=== PATIENT | male | born 1950 | race Caucasian/White ===

== ENCOUNTER 2018-01-04 13:24 | Inpatient (IN) | payer OTHER ==
[~2018-01-04] VITALS: Ht 170.2 cm; Wt 99.3 kg
--- NOTE | ~2018-01-04 | EKG ---
[address] [address] ELECTROCARDIOGRAM REPORT Name: ENRIQUE SILVESTRE Room #: 201-P ADM IN M.R.#: [id number] Admission: 01/04/18 Attend Phys: Adriel Daily MD Discharge: Date of : 52 Report #: [id number] THIS REPORT FOR: //name// [facility] Test Date: 2018-01-06 Test Time: 06:28:43 Pat Name: ENRIQUE SILVESTRE Department: Room: 201 P Gender: M Process Consultant: TIFFANIE : 1950 Requested By: Roel Mccarthy Order Number: [id number] MD: Alberto Lee Measurements Intervals [place] Rate: 77 P: 60 HI: 147 QRS: 37 QRSD: 109 T: -23 QT: 405 QTc: 459 Interpretive Statements Sinus rhythm Inferior infarct, age indeterminate Baseline wander in lead(s) V1 and V4 and V5 Compared to ECG 01/05/2018 11:59:24 Myocardial infarct finding still present Electronically Signed On 01-06-2018 8:10:57 ROUTE RELIEF DRIVER by Alberto Lee [email or web address] <ELECTRONICALLY SIGNED> By: Alberto Lee MD 01/06/1810 7 7 Alberto Lee MD /TITA
--- NOTE | ~2018-01-04 | EKG ---
[address] [place] [address] ELECTROCARDIOGRAM REPORT Name: ENRIQUE SILVESTRE Room #: 201-P ADM IN M.R.#: [id number] Admission: 01/04/18 Attend Phys: Azar Esqueda Discharge: Date of : 52 Report #: [id number] THIS REPORT FOR: //name// [facility] Test Date: 2018-01-05 Test Time: 11:59:24 Pat Name: ENRIQUE SILVESTRE Department: Room: 201 P Gender: M Truck Hop: Julien POTTER : 1950 Requested By: Roel Mccarthy Order Number: [id number] MD: Alberto Lee Measurements Intervals [place] Rate: 75 P: 53 MN: 150 QRS: 14 QRSD: 108 T: -11 QT: 387 QTc: 433 Interpretive Statements Sinus rhythm Inferior infarct, old Compared to ECG 01/05/2018 06:23:14 Myocardial infarct finding still present Electronically Signed On 01-05-2018 15:44:53 ROAD CLEANER by Alberto Lee [email or web address] <ELECTRONICALLY SIGNED> By: Alberto Lee MD 01/05/18 1544 1159 [id number] Alberto Lee MD /TITA
--- NOTE | ~2018-01-04 | CATHLAB ---
[facility] [address] [place] [address] INVASIVE PROCEDURE REPORT Name: SILVESTREENRIQUE Room #: 201-P [facility] IN ..#: [id number] Admission: 01/04/18 Attend Phys: Azar Sears Discharge: Date of : 52 Date of Service: 01/05/18 153 Report #: [id number] THIS REPORT FOR: //name// APPROVED REPORT Patient Details Patient Status: In-Patient Room #: The patient is a 67 year-old male Event Personnel Roel Mccarthy Automotive Service Professional, Darrian Adamson RN, Kennedi Cardona RN RN, Marilia Malik RTR, Vivian Tavarez David Monitor Procedures Performed Art Access - R femoral artery* Left Heart Cath w/or w/o Coronaries 1181178 LHC FFR 2588853 FFR PTCA Single Vessel CIRC 7525124 PCISINGLE 10761 Initial Mod Sed Same Phys/QHP Gr5y 601667 18079 Mod Sed Same Phys/QHP Ea 068085 Procedure Narrative The patient was brought urgently to the Cardiac Catheterization Laboratory and was prepped and draped in a sterile manner. The Right Groin^ was infiltrated with 1% Lidocaine subcutaneous anesthesia. A PINNACLE 6FR Sheath #[id number] sheath was inserted into the RFA^. Coronary angiography was performed using coronary diagnostic catheters. The right coronary system was accessed and visualized with a JR 4 catheter. The left coronary system was accessed and visualized with a JL 4 catheter. The left ventricle was accessed and visualized with a Pigtail catheter. Left ventricular/Aortic Valve gradient assessed via catheter pullback. Left ventriculogram was performed in CERNA projection. The patient tolerated the procedure well and there were no complications associated with the procedure. There was no hematoma. Intraoperative Conscious Sedation Sedation start time: 09:08 Case end Time: 10:15 Fentanyl 75.0 mcg Versed 2.0 mg Fluoro Time: 14.49 minutes Dose: 1449 mGy Contrast Type and Amount: Visipaque 220 ml Coronary Angiography [facility] [address] [place] [address] INVASIVE PROCEDURE REPORT Name: ENRIQUE SILVESTRE Room #: 201-P [facility].#: [id number] Admission: 01/04/18 Attend Phys: Azar Sears Discharge: Date of : 52 Date of Service: 01/05/18 1532 Report #: [id number] The patient's coronary anatomy is left dominant. [place] Artery Percent Stenosis Grafts (Complete if Previous CABG=Yes: Percent Stenosis) Diagnostic Cath Left Main Mild left main plaquing LAD Mild scattered proximal to mid vessel LAD plaquing Diagonal 1 Small and angiographically normal Diagonal 2 Small and angiographically normal Diagonal 3 Small and angiographically normal Circumflex The mid circumflex had been stented with at least 2 layers of stents in its midportion. There was variable 60-75%, along intrastent stenosis. FFR with adenosine was abnormal 0.81; pre-adenosine 0.98 OM1 Mild proximal plaquing OM2 Moderately large, mild proximal plaquing OM3 Terminal marginal branch with 85% proximal stenosis, although this vessel was very small in caliber Right Coronary Small, non-dominant, diffusely diseased Left Ventriculography The left ventricle is mildly dilated in size with abnormal contractility. The left ventricular ejection fraction is estimated to be 40-45%. Left ventricular wall motion abnormalities are present. There is no mitral insufficiency. Moderate left ventricular dysfunction with hypokinesis involving the base of the inferior wall. IVUS Anticoagulation was achieved with Heparin. Fractional Flow [place] was performed on the mid circumflex artery segment vessel. A 3.5 EBU Guide Catheter was used to engage the left main ostium. Hemodynamics The aortic pressure is 126/79 mmHg with a mean of 100 mmHg. The left ventricular pressure is 160/-14 mmHg with a mean of mmHg. The left ventricular end diastolic pressure is 12 mmHg. PCI Technique Lesion Anticoagulation was achieved with Heparin, Integrilin. Patient was preloaded with Plavix. Percutaneous coronary intervention was performed on the mid circumflex artery segment. The lesion stenosis prior to intervention was 85% with ZAINA 3 flow. A LAUNCHER 6FR EBU 3.5 #[id number] Guide Catheter was used to engage the left main ostium. A [facility] [address] [place] [address] INVASIVE PROCEDURE REPORT Name: ENRIQUE SILVESTRE Room #: 201-P [facility] IN M.R.#: [id number] Admission: 01/04/18 Attend Phys: Azar Sears Discharge: Date of : 52 Date of Service: 01/05/18 1532 Report #: [id number] Luge Wire .014 x 182CM #[id number] Interventional Guidewire was used to cross the lesion. BALLOON DILATION A Balloon catheter TREK NC RX 3.25 X 15 #[id number] was inserted and inflated up to 14.00atm for 33seconds. Repeat angiography revealed the following post-dilatation results: Multiple high pressure inflations made along lenth of previously placed stent. Additional Inflation: 21.00atm for 60seconds. Additional Inflation: 21.00atm for 61seconds. Overall, excellent PTCA result for intrastent stenosis with only mild residual plaquing remaining. PCI Technique Lesion The lesion stenosis prior to intervention was mid circumflex artery segment% with ZAINA 3.5 EBU flow. A left main Guide Catheter was used to engage the ostium. Conclusion 1. Moderate left ventricular dysfunction with inferior base hypokinesis (45%) 2. LM plaquing 3. LAD plaquing 4. Severe mid-circumflex intrastent stenosis with successful PTCA with non-compliant balloon to 3.5mm 5. Small, non-dominant right coronary, diffusely diseased <ELECTRONICALLY SIGNED> By: Roel Mccarthy MD, [facility] 01/05/18 153 153 153 Roel Mccarthy MD, FAC /INF
--- NOTE | ~2018-01-04 | HC ---
[facility] [place] [address] CONSULTATION Name: SILVESTREENRIQUE Room #: 201-P [facility] IN ..#: [id number] Admission: 01/04/18 Attend Phys: Azar Esqueda Discharge: Date of : 52 Report #: [id number] THIS REPORT FOR: //name// CC: Jignesh Esqueda DATE OF SERVICE: 01/04/2018 REASON FOR CONSULTATION: Chest pain. HISTORY OF PRESENT ILLNESS: The patient is a 67-year-old gentleman followed for a number of years by Dr. Mishra. He has a history of a moderate ischemic cardiomyopathy with remote stenting in 2003. This was followed by stenting in 2005 and LAD occlusion in 2007 with medicated stenting at that time. His ejection fraction is in the 40% range. Audi night, he reports development of mid sternal chest tightness. He had nitroglycerin tablets that were 10 years old and took several of them without improvement. He presented to [facility] where he was given sequential nitroglycerin tablets and his pain resolved. Initial cardiac EKG and enzymes were normal. After getting admitted to the floor at [facility], he had recurrent chest discomfort, also nitrate responsive. Reports that this pain was somewhat reminiscent to what he had prior to his prior stenting procedures. He denies heart failure symptoms, palpitations, near syncope or syncope. ALLERGIES: HE IS ALLERGIC TO SULFA. MEDICATIONS: Include metoprolol 25 mg twice daily, lisinopril 10 mg daily, aspirin, Plavix 75 mg daily, simvastatin 40 mg daily, Flomax 0.4 mg daily. PAST MEDICAL HISTORY: Medical records have been reviewed and include a history of hypertension, dyslipidemia, mild to moderate ischemic cardiomyopathy, prior knee surgery. SOCIAL HISTORY: He has never been a smoker. He is a [place] . FAMILY HISTORY: Unknown. He was adopted. REVIEW OF SYSTEMS: All systems negative except as that noted above. PHYSICAL EXAMINATION: GENERAL: He is a pleasant gentleman, in no distress. VITAL SIGNS: Blood pressure is 140/70, heart rate of 70 and regular, respirations unlabored at 18. HEENT: There are neither xanthelasma, subcutaneous xanthomata, oral mucosal or digital cyanosis or kyphoscoliosis present. CHEST: Clear to auscultation and percussion. [facility] [address] [place] [address] CONSULTATION Name: ENRIQUE SILVESTRE Room #: 201-P [facility] IN M.R.#: [id number] Admission: 01/04/18 Attend Phys: Azar Esqueda Discharge: Date of : 52 Report #: [id number] CARDIOVASCULAR: Regular rate and rhythm with normal S1, S2. No murmurs, rubs. ABDOMEN: Soft and nontender. EXTREMITIES: Without cyanosis, clubbing or edema. Radial pulses are 2+. NEUROLOGIC: Alert with a nonfocal exam. LABORATORY DATA: Sodium is 141, potassium 4.0, creatinine 1.4, troponin 0.54. White count 8.0, hemoglobin 16, hematocrit 48, platelet count 162. Chest x-ray is normal. EKG sinus rhythm with prior inferior infarct. IMPRESSION: 1. Chest pain consistent with unstable angina versus non-Q-wave myocardial infarction. 2. Hypertension. 3. Mild to moderate ischemic cardiomyopathy. 4. Hypertension. 5. Chronic kidney disease versus acute kidney injury. 6. Dyslipidemia. RECOMMENDATIONS: 1. Therapy with beta blockade, aspirin, Plavix, nitrates. 2. Coronary angiography. The angiographic procedure was discussed in detail including its associated risks. After a thorough discussion of the procedure, its risks and alternatives and after answering his questions, he is agreeable to proceeding. Thank you for asking me to participate in his care. <ELECTRONICALLY SIGNED> By: Roel Mccarthy MD, FACC 01/05/18 0908 [id number] [id number] Roel Mccarthy MD, FACC /nt
--- NOTE | ~2018-01-04 | EKG ---
[address] [place] [address] ELECTROCARDIOGRAM REPORT Name: ENRIQUE SILVESTRE Room #: 201-P ADM IN M.R.#: [id number] Admission: 01/04/18 Attend Phys: Azar Esqueda Discharge: Date of : 52 Report #: [id number] THIS REPORT FOR: //name// [facility] Test Date: 2018-01-05 Test Time: 06:23:14 Pat Name: ENRIQUE SILVESTRE Department: Room: 201 P Gender: M Mobile Application Engineer: TIFFANIE : 1950 Requested By: Roel Mccarthy Order Number: [id number] MD: Roel Mccarthy Measurements Intervals [place] Rate: 67 P: 39 MT: 153 QRS: 43 QRSD: 110 T: -22 QT: 381 QTc: 403 Interpretive Statements Sinus rhythm Inferior infarct, age indeterminate Compared to ECG 10/03/2008 07:01:19 No significant change was found Electronically Signed On 01-05-2018 8:25:53 TELEGRAPHIC TYPEWRITER OPERATOR CHIEF by Roel Mccarthy [email or web address] <ELECTRONICALLY SIGNED> By: Roel Mccarthy MD, [facility] 01/05/18 0825 2 Roel Mccarthy MD, FACC /EPI
[2018-01-04 15:30] VITALS: BP 140/92
[2018-01-04] MEDS ORDERED: LOPRESSOR50 PO (15:53)
[2018-01-04] MEDS ORDERED: LISINOPRIL20 MG PO (15:54)
[2018-01-04] MEDS ORDERED: ASPIRIN325 PO (15:55)
[2018-01-04] MEDS ORDERED: FISH OIL 1,001000 M2 PO (15:55)
[2018-01-04] MEDS ORDERED: ZOCOR40 MG PO (15:56)
[2018-01-04] MEDS ORDERED: PLAVIX 75 MG TA75 M1 PO (15:56)
[2018-01-04] MEDS ORDERED: FLOMAX0.4 MG PO (15:57)
[2018-01-04 16:27] LABS: HEMATOCRIT 48.4 % (42.0-52.0); HEMOGLOBIN 16.6 gm/dL (14.0-18.0); MCH 29.6 pg (26.0-34.0); MCHC 34.4 g/dL (28.0-37.0); MCV 86.1 fL (80.0-100.0); RBC 5.61 mil/uL (4.50-6.00); RDW 13.4 % (10.5-14.5)
[2018-01-04 16:43] LABS: CALCIUM 8.9 mg/dL (8.5-10.1); CREATININE 1.4 mg/dL (0.7-1.3)
[2018-01-04 16:49] LABS: ALBUMIN 3.7 g/dL (3.4-5.0); TOTAL BILIRUBIN 1.3 mg/dL (<0.1-1.0); TOTAL PROTEIN 6.5 g/dL (6.4-8.2)
[2018-01-04 20:43] VITALS: BP 118/77
[2018-01-04 23:20] VITALS: BP 100/57
[2018-01-05 03:54] LABS: CALCIUM 8.4 mg/dL (8.5-10.1); CREATININE 1.3 mg/dL (0.7-1.3); POTASSIUM 3.9 mmol/L (3.5-5.1)
[2018-01-05 03:55] LABS: HEMATOCRIT 46.7 % (42.0-52.0); HEMOGLOBIN 15.8 gm/dL (14.0-18.0); MCH 29.1 pg (26.0-34.0); MCHC 33.9 g/dL (28.0-37.0); MCV 85.7 fL (80.0-100.0); RBC 5.45 mil/uL (4.50-6.00); RDW 13.3 % (10.5-14.5); WBC 8.2 thou/uL (4.0-11.0)
[2018-01-05 05:08] VITALS: BP 96/60
[2018-01-05 08:00] VITALS: BP 121/85
[2018-01-05 13:15] VITALS: BP 132/91
[2018-01-05 16:00] VITALS: BP 111/70
[2018-01-05 19:55] VITALS: BP 116/74
[2018-01-06 00:13] VITALS: BP 95/60
[2018-01-06 04:33] LABS: HEMATOCRIT 45.7 % (42.0-52.0); HEMOGLOBIN 15.6 gm/dL (14.0-18.0); MCH 29.2 pg (26.0-34.0); MCHC 34.1 g/dL (28.0-37.0); MCV 85.6 fL (80.0-100.0); RBC 5.33 mil/uL (4.50-6.00); RDW 13.2 % (10.5-14.5); WBC 9.2 thou/uL (4.0-11.0)
[2018-01-06 04:45] VITALS: BP 114/75
[2018-01-06 05:03] LABS: CALCIUM 8.2 mg/dL (8.5-10.1); CREATININE 1.2 mg/dL (0.7-1.3); POTASSIUM 3.8 mmol/L (3.5-5.1)
[2018-01-06 05:08] LABS: TROPONIN-I 0.84 ng/mL (<0.06)
[2018-01-06 07:15] VITALS: BP 116/81
[2018-01-06 10:42] VITALS: BP 116/81
== END 2018-01-06 11:58 | disposition home or self-care (01) | DRG 250 ==
LOC: 2N 13:24 → ENTRNSPT 01-06 11:50 → EDTRNSPTSTS 01-06 11:54 → 2N 01-06 11:58
PROVIDERS: Hospitalist; Internal Medicine
PROC: 4A023N7 Measurement of Cardiac Sampling and Pressure, Left Heart, Percutaneous Approach (ICD-10-PCS; principal; 2018-01-05)
PROC: 02703ZZ Dilation of Coronary Artery, One Artery, Percutaneous Approach (ICD-10-PCS; principal; 2018-01-05)
PROC: B211YZZ Fluoroscopy of Multiple Coronary Arteries using Other Contrast (ICD-10-PCS; principal; 2018-01-05)
PROC: B215YZZ Fluoroscopy of Left Heart using Other Contrast (ICD-10-PCS; principal; 2018-01-05)
DX: I25.110 Atherosclerotic heart disease of native coronary artery with unstable angina pectoris (principal); J96.00 Acute respiratory failure, unspecified whether with hypoxia or hypercapnia; N17.9 Acute kidney failure, unspecified; I24.9 Acute ischemic heart disease, unspecified; I12.9 Hypertensive chronic kidney disease with stage 1 through stage 4 chronic kidney disease, or unspecified chronic kidney disease; E78.5 Hyperlipidemia, unspecified; I25.5 Ischemic cardiomyopathy; E78.00 Pure hypercholesterolemia, unspecified; I25.2 Old myocardial infarction; Z95.5 Presence of coronary angioplasty implant and graft; Z88.2 Allergy status to sulfonamides; Z87.891 Personal history of nicotine dependence; Z79.82 Long term (current) use of aspirin; Z79.899 Other long term (current) drug therapy
CPT/HCPCS: 10081

== ENCOUNTER → 2021-06-13 | Outpatient (CLI) | payer OTHER ==
[~2021-06-13] MED LIST: ASPIRIN325 PO; FISH OIL 1,001000 M2 PO; FLOMAX0.4 MG PO; LISINOPRIL20 MG PO; LOPRESSOR50 PO; PLAVIX 75 MG TA75 M1 PO; ZOCOR40 MG PO
== END ==
LOC: SJCVCIMAG 06-05 16:40
PROVIDERS: ATTEND Internal Medicine Cardiovascular Disease
DX: I25.10 Atherosclerotic heart disease of native coronary artery without angina pectoris (principal); I25.2 Old myocardial infarction; E78.5 Hyperlipidemia, unspecified; R06.00 Dyspnea, unspecified; R53.83 Other fatigue; Z98.61 Coronary angioplasty status

== ENCOUNTER 2022-01-26 12:43 | Emergency (ER) | payer OTHER ==
[~2022-01-26] VITALS: Ht 170.2 cm; Wt 99.8 kg
[2022-01-26 13:05] LABS: HEMATOCRIT 47.6 % (42.0-52.0); HEMOGLOBIN 16.6 gm/dL (14.0-18.0); MCH 29.7 pg (26.0-34.0); MCHC 34.8 g/dL (28.0-37.0); MCV 85.3 fL (80.0-100.0); RBC 5.58 mil/uL (4.50-6.00); WBC 8.3 thou/uL (4.0-11.0)
[2022-01-26 13:13] LABS: CALCIUM 8.6 mg/dL (8.5-10.1); CREATININE 1.1 mg/dL (0.7-1.3); POTASSIUM 4.3 mmol/L (3.5-5.1)
[2022-01-26 13:23] LABS: ALBUMIN 3.9 g/dL (3.4-5.0); MAGNESIUM 2.1 mg/dL (1.8-2.4); TOTAL BILIRUBIN 1.3 mg/dL (0.2-1.0); TOTAL PROTEIN 6.8 g/dL (6.4-8.2)
[2022-01-26] MEDS ORDERED: MECLIZINE HCL25 MG PO (15:19)
[2022-01-26 15:34] VITALS: BP 112/69
--- NOTE | 2022-01-27 09:55 | EKG ---
[address] [address] ELECTROCARDIOGRAM REPORT Name: ENRIQUE SILVESTRE Room #: [facility] Christiano#: [id number] Admission: 01/26/22 Attend Phys: Discharge: 01/26/22 Date of : 52 Report #: [id number] [facility] ED Test Date: 2022-01-26 Test Time: 12:52:42 Pat Name: ENRIQUE SILVESTRE Department: Room: Gender: Atg Architect: EUGENIE : 1950 Requested By: Cathie Monsalve Order Number: [id number] MD: Vic Simon Measurements Intervals [place] Rate: 80 P: 62 PA: 141 QRS: -11 QRSD: 129 T: -36 QT: 403 QTc: 465 Interpretive Statements Sinus rhythm Nonspecific intraventricular conduction delay Inferior infarct, age indeterminate Compared to ECG 01/06/2018 06:28:43 Intraventricular conduction delay now present Myocardial infarct finding still present Electronically Signed On 01-27-2022 9:55:49 INDUSTRIAL HYGIENE ENGINEER by Vic Simon [email or web address] <ELECTRONICALLY SIGNED> By: Vic Simon MD 01/27/22 0955 1252 1252 MD CHANDNI Ureña
== END 2022-01-26 15:35 | disposition home or self-care (01) ==
LOC: ER 12:43
PROVIDERS: Nurse Practitioner Family
DX: R42 Dizziness and giddiness (principal); R07.89 Other chest pain; R06.02 Shortness of breath; R11.0 Nausea; I25.10 Atherosclerotic heart disease of native coronary artery without angina pectoris; I10 Essential (primary) hypertension; E78.00 Pure hypercholesterolemia, unspecified; Z95.5 Presence of coronary angioplasty implant and graft; Z88.2 Allergy status to sulfonamides